=== PATIENT | female | born 1985 | race Caucasian/White ===

== ENCOUNTER 2017-04-08 13:12 | Emergency (ER) | payer SELFPAY ==
[~2017-04-08] VITALS: Ht 177.8 cm; Wt 136.1 kg
[2017-04-08 13:40] VITALS: BP 117/80
== END 2017-04-08 13:53 | disposition home or self-care (01) ==
LOC: ER 13:20
DX: J32.0 Chronic maxillary sinusitis (principal); H52.7 Unspecified disorder of refraction; Z88.0 Allergy status to penicillin